=== PATIENT | female | born 1955 | race Caucasian/White ===

== ENCOUNTER 2019-05-15 06:20 | Day surgery (SDC) | payer OTHER ==
[~2019-05-15] VITALS: Ht 167.6 cm; Wt 95.7 kg
[~2019-05-15 06:20] MED LIST: ACID CONTROL150 MG PO; ARMOUR THYROID60 MG PO; ASPIR-LOW81 MG PO; B-12500 MCG PO; ESTRADIOL1 MG PO; GABAPENTIN300 MG PO; MELATONIN10 M2 PO; NORCO 5-325 TA1 EACH PO; NORCO 7.5-3251 EACH PO; PROGESTERONE100 MG PO; TESSALON PERLE100 MG PO; VITAMIN D2000 UNI1 PO
[2019-05-15] MEDS ORDERED: PANTOPRAZOLE SO40 MG PO (06:34)
--- NOTE | 2019-05-15 08:08 | NUR ---
05/15/19 0808 Najma Maharaj 0830-PATIENT ARRIVED TO PACU ON 3L NC PLACED ON 2L NC. RR EVEN. PATIENT REACTIVE TO VOICE OPENS EYES VERY DROWSY BACK TO SLEEP. ABDOMEN SOFT. LAYING LEFT LATERAL. IVF INFUSING
--- NOTE | 2019-05-15 14:16 | NUR ---
PT RESTING IN BED, ALERT AND ORIENTED. SHE IS PLEASANT AND HAS HAD SCOPES PREVIOUS. HER BOYFRIEND WILL COME TO TAKE HER HOME UPON DC. PT REQUESTED PRAYER, WILL FOLLOW NEEDED
--- NOTE | 2019-05-15 17:24 | OR ---
[facility] [address], [place] [address] Signed DATE OF OPERATION: 05/15/2019 SURGEON: Cheyenne López MD PREOPERATIVE DIAGNOSES: 1. Personal history of colonic polyps in 2008. 2. Family history of colonic polyps in her father, brother and sister. 3. Paternal uncles x3 with colon cancer. 4. Possible paternal grandfather with colon cancer. 5. Diverticulosis. 6. Internal hemorrhoid/skin tags. POSTOPERATIVE DIAGNOSES: 1. Moderate left-sided diverticulosis. 2. Minimal internal hemorrhoid/skin tags. PROCEDURE: Colonoscopy without biopsy. ESTIMATED BLOOD LOSS: None. INDICATIONS: Jack is a 63-year-old female who comes every 5 years for followup colonoscopy. She has her own personal history of colonic polyps from 2008. She is known to have diverticulosis along with some internal hemorrhoids and skin tags. In addition, her paternal grandfather may have had colon cancer. Three of her paternal uncles were of colon cancer. In addition, her father, brother and sister have all had colonic polyps. In the meantime, she says she is doing great group home. She has no lower GI complaints. In the office, I gave her a pamphlet on colonoscopy. We reviewed the nature of colonoscopy along with its risks including, but not limited to gas, bloating, crampy abdominal pain, bleeding, perforation requiring surgery, and missed diagnosis. We also discussed the need for IV conscious sedation. She had expressed understanding and wished to proceed. PROCEDURE NOTE: Jack was taken into our endoscopy suite and placed in the left lateral decubitus position. She was worried her prep was not quite adequate. She was given a total of 8 mg of Versed and 150 mcg of fentanyl to cover the case. A digital rectal exam was performed and this was unremarkable. The adult colonoscope was introduced and advanced Electronically Signed By: CHEYENNE LÓPEZ MD 05/15/19 6594 PATIENT NAME: JACK HESTER OPERATIVE REPORT DATE OF : 55 REPORT #: [id number] PHYSICIAN: CHEYENNE LÓPEZ MD PCP: MORENA RICHEY PA-C REPORT IS CONFIDENTIAL AND NOT TO BE RELEASED WITHOUT AUTHORIZATION [facility] [address], [place] [address] Signed all around into the cecum under direct visualization of camera. It took some additional sedation and some mild abdominal compression in order to advance the scope. She had just a couple of areas where there was liquid particulate stool matter. Consequently, I could not quite suction that out completely. However, we could see the appendiceal orifice and the ileocecal valve. The scope was slowly withdrawn. Overall, the prep was good. We saw no evidence of any additional polyps. We did see her diverticulosis in the left and sigmoid colon. They were moderate in size, moderate in number, and scattered about. Upon retroflexion of the scope, she had some very tiny internal anal skin tags and hemorrhoids. Otherwise, the rectum was unremarkable. After this, the gas was suctioned out and colonoscope removed. Jack tolerated the procedure quite well. RECOMMENDATIONS: Jack can return in 5 years for repeat colonoscopy due to her family and personal history. If she wants to take some additional laxatives in five years, that would be fine. MD NIRU Fink/KEVINL /[id number] cc: MD Morena Ho PA-C Andrew L Bower, MD Copies: MORENA RICHEY PA-C, ANDREW L MD ~ Electronically Signed By: CHEYENNE LÓPEZ MD 05/15/19 1724 PATIENT NAME: JACK HESTER OPERATIVE REPORT DATE OF : 55 REPORT #: [id number] PHYSICIAN: CHEYENNE LÓPEZ MD PCP: MORENA RICHEY PA-C REPORT IS CONFIDENTIAL AND NOT TO BE RELEASED WITHOUT AUTHORIZATION
== END 2019-05-15 08:45 | disposition home or self-care (01) ==
LOC: DS 06:20 → OPS 06:20 → DS 06:45 → OPS 06:45
PROVIDERS: Colon & Rectal Surgery
PROC: 0DJD8ZZ Inspection of Lower Intestinal Tract, Via Natural or Artificial Opening Endoscopic (ICD-10-PCS; principal; 2019-05-15 06:45)
DX: Z12.11 Encounter for screening for malignant neoplasm of colon (principal); K57.30 Diverticulosis of large intestine without perforation or abscess without bleeding; K64.4 Residual hemorrhoidal skin tags; E55.9 Vitamin D deficiency, unspecified; Z86.010 Personal history of colon polyps; Z83.71 Family history of colonic polyps; Z80.0 Family history of malignant neoplasm of digestive organs; Z79.82 Long term (current) use of aspirin; Z79.899 Other long term (current) drug therapy; Z98.890 Other specified postprocedural states; Z88.2 Allergy status to sulfonamides
CPT/HCPCS: 99153; G0500; J2250; J3010; J7120

== ENCOUNTER 2023-07-20 17:57 | Emergency (ER) | payer MEDICARE, BC ==
[~2023-07-20] VITALS: Ht 167.6 cm; Wt 83.4 kg
[~2023-07-20 17:57] MED LIST changes: +PANTOPRAZOLE SO40 MG PO
[2023-07-20 19:15] LABS: BASOPHILS 0.1 % (0-2); EOSINOPHILS 0.8 % (0-6); HEMATOCRIT 43.6 % (35.0-50.0); HEMOGLOBIN 14.2 g/dL (12.0-18.0); LYMPHOCYTES 15.2 % (24-44); MCH 29.5 (27-36); MCHC 32.6 g/dl (30-36); MCV 90.6 fl (81-99); MONOCYTES 8.8 % (0-12); NEUTROPHILS 75.1 % (39-80); PLATELET COUNT 218 K/uL (140-440); RBC 4.81 M/ul (4.3-5.7); RDW 13.5 (10.5-15.0)
[2023-07-20 19:29] LABS: ALBUMIN 3.5 g/dL (3.4-5.0); ALBUMIN/GLOBULIN RATIO 0.95 (1.1-2.4); ANION GAP 13.9 (7-21); BILIRUBIN, TOTAL 0.7 ng/dL (0.2-1.0); BUN/CREATININE RATIO 14.44 (6.0-28.6); CALCIUM 8.9 mg/dL (8.5-10.1); CREATININE, SERUM 0.9 mg/dL (0.55-1.02); POTASSIUM 3.9 mmol/L (3.5-5.1); PROTEIN, TOTAL 7.2 g/dL (6.4-8.2)
[2023-07-20] MEDS ORDERED: ONDANSETRON ODT8 MG PO (20:04)
[2023-07-20] MEDS ORDERED: CIPRO500 MG PO (20:04)
[2023-07-20] MEDS ORDERED: HYDROCODON-ACE1 EA10 PO (20:04)
[2023-07-20] MEDS ORDERED: METRONIDAZOLE500 MG PO (20:04)
[2023-07-20 20:46] VITALS: BP 124/72
== END 2023-07-20 20:48 | disposition home or self-care (01) ==
LOC: ED 17:57
PROVIDERS: Family Medicine
DX: K57.32 Diverticulitis of large intestine without perforation or abscess without bleeding (principal); Z87.891 Personal history of nicotine dependence; Z88.2 Allergy status to sulfonamides; Z79.82 Long term (current) use of aspirin; Z79.899 Other long term (current) drug therapy
CPT/HCPCS: 36415; 74177; 80053; 85025; 96375; 99284-25; A9270; J2270; J2405; J7030; Q9967

== ENCOUNTER 2025-02-26 15:15 | Emergency (ER) | payer OTHER, MEDICARE, BC ==
[~2025-02-26] VITALS: Ht 167.6 cm; Wt 100.0 kg
[~2025-02-26 15:15] MED LIST changes: +CIPRO500 MG PO; +HYDROCODON-ACE1 EA10 PO; +METRONIDAZOLE500 MG PO; +ONDANSETRON ODT8 MG PO
[2025-02-26] MEDS ORDERED: HYDROmorphone HCL 1 MG/ML SYR IV ONE (16:00)
[2025-02-26] MEDS ORDERED: ondansetron HCL 4 MG/2 ML VIAL IV ONE (16:00)
[2025-02-26] MEDS ORDERED: ALENDRONATE SOD70 MG PO (16:10)
[2025-02-26] MEDS ORDERED: HYDROCODON-ACE1 EAC8 PO (17:30)
[2025-02-26] MEDS ORDERED: ONDANSETRON ODT4 MG PO (17:30)
[2025-02-26 19:51] VITALS: BP 165/97
== END 2025-02-26 19:51 | disposition home or self-care (01) ==
LOC: ED 15:15
DX: S42.201A Unspecified fracture of upper end of right humerus, initial encounter for closed fracture (principal); W01.0XXA Fall on same level from slipping, tripping and stumbling without subsequent striking against object, initial encounter; K21.9 Gastro-esophageal reflux disease without esophagitis; Z87.891 Personal history of nicotine dependence; Z88.2 Allergy status to sulfonamides; Z79.899 Other long term (current) drug therapy; Z79.82 Long term (current) use of aspirin
CPT/HCPCS: 73060; 96374; 96375; 99283-25; J1171; J2405

== ENCOUNTER 2025-02-28 07:53 | Emergency (ER) | payer MEDICARE, BC ==
[~2025-02-28] VITALS: Ht 167.6 cm; Wt 100.0 kg
[~2025-02-28 07:53] MED LIST changes: +ALENDRONATE SOD70 MG PO; +HYDROCODON-ACE1 EAC8 PO; +ONDANSETRON ODT4 MG PO
--- OUTSIDE RECORDS SUMMARY | 2025-02-28 08:00 | XMS ---
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 Keila has no Care Guidelines for this patient. [place] VISIT COUNT (12 MO.) [address] [facility] TOTAL 2 NOTE: Visits indicate total known visits. ED/C VISIT TRACKING (12 MO.) 02/28/2025 07:53 [facility] [place] TYPE: Emergency COMPLAINT: - RT ARM INJURY 02/26/2025 15:[address] [facility] [place] TYPE: Emergency COMPLAINT: - FALL DIAGNOSES: - Allergy status to sulfonamides - Fall on same level from slipping, tripping and stumbling without subsequent striking against object, initial encounter - Gastro-esophageal reflux disease without esophagitis - manager long term care (current) use of aspirin - Other manager intermediate (current) drug therapy - Pain in right arm - Personal history of nicotine dependence - Unspecified fracture of upper end of right humerus, initial encounter for closed fracture INPATIENT VISIT TRACKING (12 MO.) No inpatient visits to display in this time frame [email or web address]
[2025-02-28] MEDS ORDERED: HYDROmorphone HCL 1 MG/ML SYR IM ONE (08:15)
[2025-02-28] MEDS ORDERED: HYDROmorphone HCL 1 MG/ML SYR IV ONE ×2 (09:00→12:30)
[2025-02-28] MEDS ORDERED: DEXAMETHASONE SOD PHOS 10 MG/ML VIAL ONE (13:13)
[2025-02-28] MEDS ORDERED: BUPIVACAINE HCL 0.5% 30 ML VIAL ONE (13:13)
[2025-02-28] MEDS ORDERED: dexmedeTOMIDine HCl 200 MCG/2 ML VIAL ONE (13:14)
[2025-02-28] MEDS ORDERED: LIDOCAINE HCL 2% 5 ML SDV ONE (13:14)
[2025-02-28] MEDS ORDERED: Ropivacaine HCl 0.5% 30 ML VIAL ONE (13:15)
[2025-02-28] MEDS ORDERED: PERCOCET 10-321 EACH PO (14:38)
[2025-02-28 14:45] VITALS: BP 104/69
== END 2025-02-28 14:50 | disposition home or self-care (01) ==
LOC: ED 07:53
DX: S42.251A Displaced fracture of greater tuberosity of right humerus, initial encounter for closed fracture (principal); W18.30XA Fall on same level, unspecified, initial encounter; Z88.2 Allergy status to sulfonamides; K21.9 Gastro-esophageal reflux disease without esophagitis
CPT/HCPCS: 73060; 73090; 73110; J1100; J1171; J2003; J2795